=== PATIENT | female | born 1935 | race Caucasian/White ===

== ENCOUNTER 2018-03-15 10:44 | Emergency (ER) | payer MEDICARE, BC ==
[~2018-03-15] VITALS: Ht 160 cm; Wt 86.4 kg
[2018-03-15 11:25] VITALS: BP 139/76
== END 2018-03-15 12:43 | disposition home or self-care (01) ==
LOC: ER 10:44
DX: S93.401A Sprain of unspecified ligament of right ankle, initial encounter (principal); G62.9 Polyneuropathy, unspecified; M19.90 Unspecified osteoarthritis, unspecified site; Z88.0 Allergy status to penicillin; W01.0XXA Fall on same level from slipping, tripping and stumbling without subsequent striking against object, initial encounter; Y93.89 Activity, other specified; Y92.89 Other specified places as the place of occurrence of the external cause; Y99.8 Other external cause status
CPT/HCPCS: 73610; 99284

== ENCOUNTER 2020-04-28 10:27 | Emergency (ER) | payer MEDICARE, BC ==
[~2020-04-28] VITALS: Ht 160 cm; Wt 85.9 kg
[2020-04-28] MEDS ORDERED: diltiazem 5mg/ml 5ml inj. IV ONE (11:00)
[2020-04-28] MEDS ORDERED: diltiazem-NS 100mg/100ml 100 ML IV ONE (11:00)
[2020-04-28] MEDS ORDERED: enoxaparin 100mg/ml syringe SUBCUT ONE (11:00)
[2020-04-28 12:02] LABS: BASOPHILS % (AUTO) 0.5 % (0-1); EOSINOPHILS # (AUTO) 0.1 X10'3 (0-0.9); EOSINOPHILS % (AUTO) 0.9 % (0-6); HEMOGLOBIN 15.2 g/dl (12.0-16.0); LYMPHOCYTES % (AUTO) 25.8 % (21-51); MEAN CORPUSCULAR HEMOGLOBIN 30.7 PG (27.0-31.0); MEAN CORPUSCULAR HGB CONC 33.1 g/dL (33.0-36.5); MEAN CORPUSCULAR VOLUME 92.8 FL (78-98); MEAN PLATELET VOLUME 8.8 FL (7.4-10.4); MONOCYTES # (AUTO) 0.7 X10'3 (0-0.9); MONOCYTES % (AUTO) 8.5 % (2-12); NEUTROPHILS % (AUTO) 64.3 % (42-75); PLATELET COUNT 256 X10'3 (140-440); RED BLOOD COUNT 4.96 X10'6 (4.20-5.60); RED CELL DISTRIBUTION WIDTH 14.3 % (11.5-14.5); WHITE BLOOD COUNT 7.7 X10'3 (4.5-11.0)
[2020-04-28 12:17] LABS: ALANINE AMINOTRANSFERASE 26 U/L (12-78); ALBUMIN 3.9 G/DL (3.4-5.0); ALBUMIN/GLOBULIN RATIO 1.1 (1.1-1.5); ALKALINE PHOSPHATASE 60 IU/L (46-116); ANION GAP 9 (8-16); ASPARTATE AMINO TRANSFERASE 20 U/L (10-37); BILIRUBIN,TOTAL 0.9 MG/DL (0.1-1.0); BLOOD UREA NITROGEN 20 MG/DL (7-18); BUN/CREATININE RATIO 15.3 (6.6-38.0); CALCIUM 9.4 MG/DL (8.5-10.1); CHLORIDE 108 MMOL/L (99-107); CREATININE 1.31 MG/DL (0.40-0.90); GLUCOSE 102 MG/DL (70-104); POTASSIUM 4.4 MMOL/L (3.5-5.1); SODIUM 144 MMOL/L (135-145); TOTAL CARBON DIOXIDE 27.2 MMOL/L (24-32); TOTAL PROTEIN 7.4 G/DL (6.4-8.2); eGFR 39 ML/MIN
[2020-04-28 12:24] LABS: MAGNESIUM 1.7 MG/DL (1.5-2.4)
[2020-04-28 13:25] VITALS: BP 114/85
--- NOTE | 2020-04-28 13:40 | NUR ---
DR RODRIGES AT BEDSIDE. 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 SECOND EKG HAS BEEN DONE. NO DIZZINESS.
--- NOTE | 2020-04-28 13:46 | NUR ---
AND JEREMIAH POWER FOR PT TO D/C NOW, NO U/A OR ADDITIONAL TROP NEEDED PER
== END 2020-04-28 13:53 | disposition home or self-care (01) ==
LOC: ER 10:31
DX: I48.0 Paroxysmal atrial fibrillation (principal); I10 Essential (primary) hypertension; M19.90 Unspecified osteoarthritis, unspecified site; Z85.9 Personal history of malignant neoplasm, unspecified; Z90.710 Acquired absence of both cervix and uterus; Z90.10 Acquired absence of unspecified breast and nipple; Z98.890 Other specified postprocedural states; Z88.0 Allergy status to penicillin
CPT/HCPCS: 36415; 70450; 71045; 80053; 83735; 83880; 84484; 85025; 93005; 99285